=== PATIENT | female | born 1970 | race Caucasian/White ===

== ENCOUNTER 2017-08-08 08:24 | Inpatient (IN) | payer BC ==
--- NOTE | 2017-08-06 11:55 | PREOPHP ---
DATE OF ADMISSION: 08/08/2017 The patient to have surgery with Bulmaro Alegria MD on 08/08/2017. HISTORY OF PRESENT ILLNESS: Consultation requested by Bulmaro Alegria MD for medical evaluation and clearance of a 47-year- old woman about to undergo surgery. Thank you Dr. Alegria, for allowing us to participate in the care of this patient. The patient is a 47-year-old woman with a long-standing history with problems with her back is currently being admitted for correction of the above. In terms of her past medical history, she has really had no other surgeries. She has been quite healthy, has had no medical hospitalizations other than for and had no surgeries and no broken bones. Was taking gabapentin, but is no longer taking that. Takes no other chronic medications and she has no allergies to any medications. SOCIAL HISTORY: Patient is single. Has 2 children and 1 grandchild. She is a low-level smoker, has been smoking for 20 years. Alcohol socially. Does not drink coffee and usually has no difficulty sleeping at night and is employed. FAMILY HISTORY: Father in his 30s of an overdose. Mother 65 in good health. Two siblings are relatively healthy; however, her brother has hypertension and diabetes. There is a family history of diabetes and heart disease, cancer as well as hypertension and stroke. No thyroid issues. REVIEW OF SYSTEMS: HEENT: Periodic headaches. Cardiorespiratory denies any chest pain, shortness of breath. GASTROINTESTINAL: No melena or hematemesis. GENITOURINARY: No urgency frequency. 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 MUSCULOSKELETAL: Positive for low back pain. NEUROPSYCHIATRIC: Unremarkable general health as above. PHYSICAL EXAMINATION: VITAL SIGNS: Patient's blood pressure was 115/60, pulse was 79 and regular, respirations were 18, temperature 98, height 5, feet 1 inch, weight 200 pounds. GENERAL APPEARANCE: Patient was noted to be a well-developed, well-nourished female, alert and cooperative, in no apparent acute distress. Oriented to time, place, and person. HEENT: Head was atraumatic. The eyes pupils were equal, reactive to light and accommodation. Fundi were benign. Tympanic membranes were unremarkable. Nose was negative. Mouth was unremarkable. Fair oral hygiene was present. NECK: Was supple without any rigidity. Trachea was midline. Thyroid was palpable, minimally enlarged. No obvious nodularity being noted. Neck veins were flat. Carotid pulses were equal. No bruits were heard. BACK EXAM: Reveals some lower back tenderness, otherwise unremarkable. CHEST: Was symmetrical. Breast and axillary exam did not reveal any masses. LUNGS: Clear to percussion and auscultation. HEART: PMI is 5th intercostal space at the midclavicular line. Irregular sinus rhythm was noted. No significant murmurs, rubs, or gallops being elicited. ABDOMEN: Soft. Good bowel sounds were noted. No significant organomegaly masses or tenderness. GENITALIA: Per PCP. RECTAL EXAM: Per PCP. EXTREMITIES: Did not reveal any clubbing, edema, or cyanosis. Peripheral pulses were physiologic. SKIN: Was moist and warm without any eruptions. No gross lymphadenopathy was noted. NEUROLOGIC EXAM: Was grossly intact. IMPRESSION: 1. Lumbar disc disease. 2. Metabolic syndrome. 3. Stable health. DISCUSSION: Review of laboratory and other data revealed the following, the patient's chemistry panel including electrolytes, glucose, BUN, creatinine, liver function tests, test CBC, sed rate, UA, PT, PTT were normal. The patient's chest x- ray was within normal limits as was her EKG, which revealed some nonspecific changes but no acute changes being noted. Dr. Alegria, I see no contraindications of the patient undergoing current proposed surgery under the desired form of anesthesia. I will be more than happy to follow her up with you during her stay at [facility]. Thank you again Dr. Alegria for allowing us participate in care of this patient. Dictated By: Edi Kimbrough MD /ember/karine /Document#: [id number] ANNE MARIE
[2017-08-08] VITALS (27 sets, daily range): BP systolic 79–137; BP diastolic 48–88; PULSE 64–78; RESP 18–20; Ht 154.9 cm; Wt 91.0 kg
[~2017-08-08] VITALS: Ht 154.9 cm; Wt 91.0 kg
[~2017-08-08 08:24] MED LIST: ACETAMINOPHEN 1000MG/100ML IV 100 ML ONE; CEFAZOLIN 1 GM INJ ONE; FENTAnyl 50 MCG/ML VIAL ONE; MIDAZOLAM 1 MG/ML 2 ML INJ ONE; PROPOFOL 100 ML ONE; ROCURONIUM 50 MG INJ ONE
[2017-08-08] MEDS ORDERED: D5W-0.45 NACL + KCL 20 MEQ 1,000 ML IV SCH (08:52)
--- NOTE | 2017-08-08 08:52 | HPN ---
Date/Time of Note Date/Time of Note DATE: 08/08/17 TIME: 08:52 Interval H&P Admission Note Pt. seen H&P reviewed: No system changes CHRISTIAN BRENNAN PA-C Aug 08, 2017 08:52
[2017-08-08] MEDS ORDERED: OXYM15SP34 NASAL (08:55)
[2017-08-08] MEDS ORDERED: CYCL-319 PO (08:55)
[2017-08-08] MEDS ORDERED: AL HYDROX/MG HYDROX/SIMETH 30 ML CUP PO PRN ×2 (09:00→12:00)
[2017-08-08] MEDS ORDERED: CYCLOBENZAPRINE 10 MG TAB PO PRN ×2 (09:00→12:00)
[2017-08-08] MEDS ORDERED: DIPHENHYDRAMINE 50 MG INJ IV PRN ×3 (09:00→12:00)
[2017-08-08] MEDS ORDERED: CEPASTAT LOZENGE MT PRN ×2 (09:00→12:00)
[2017-08-08] MEDS ORDERED: HYDROCODONE/APAP (10/325) TAB PO PRN (09:00)
[2017-08-08] MEDS ORDERED: BISACODYL 10 MG SUPP PR PRN ×2 (09:00→12:00)
[2017-08-08] MEDS ORDERED: ZOLPIDEM 5 MG TAB PO PRN ×2 (09:00→12:00)
[2017-08-08] MEDS ORDERED: DOCUSATE SODIUM 100 MG CAP PO SCH (09:00)
[2017-08-08] MEDS ORDERED: NALOXONE (0.4 MG/ML) INJ IV PRN ×2 (09:00→12:00)
[2017-08-08] MEDS ORDERED: ONDANSETRON 4 MG INJ IV PRN ×3 (09:00→12:00)
[2017-08-08] MEDS ORDERED: HYDROmorphONE 1 MG/ML SYG IV PRN ×2 (09:00→12:00)
[2017-08-08] MEDS ORDERED: ACETAMINOPHEN 325 MG TAB PO PRN ×2 (09:00→12:00)
[2017-08-08] MEDS ORDERED: HYDROCODONE/APAP (5/325) TAB PO PRN (09:00)
[2017-08-08] MEDS ORDERED: CEFAZOLIN 1 GM/50 ML (PMX) 50 ML IVPB SCH ×3 (09:00→22:00)
[2017-08-08] MEDS ORDERED: GELATIN SIZE 100 SPONGE ONE (09:25)
[2017-08-08] MEDS ORDERED: SURGIFOAM POWDER 1 GM KIT ONE (09:25)
[2017-08-08] MEDS ORDERED: POLYMYXIN/BACITRACIN 1L IRRIG ONE (09:25)
[2017-08-08] MEDS ORDERED: BUPIVACAINE 0.5%/EPI (SDV) 10 ML INJ ONE (09:25)
[2017-08-08] MEDS ORDERED: THROMBIN 5000 UNIT VIAL ONE (09:25)
[2017-08-08] MEDS ORDERED: SODIUM CL BACTERIOSTATIC 30 ML INJ ONE (09:25)
[2017-08-08] MEDS ORDERED: BUPIVACAINE 0.25% (MPF) 30 ML INJ ONE (09:25)
[2017-08-08] MEDS ORDERED: DEXAMETHASONE 4 MG/ML 1 ML INJ ONE (10:50)
[2017-08-08] MEDS ORDERED: METOCLOPRAMIDE 10 MG INJ ONE (10:50)
[2017-08-08] MEDS ORDERED: ONDANSETRON 4 MG INJ ONE (10:50)
[2017-08-08] MEDS ORDERED: CA CHLORIDE 10% 10 ML SYRINGE ONE (10:51)
[2017-08-08] MEDS ORDERED: BUPIVACAINE 0.25% (MPF) 10 ML 10 ML VIAL ONE (11:00)
[2017-08-08] MEDS ORDERED: FENTAnyl 50 MCG/ML VIAL ONE ×2 (11:01→12:14)
[2017-08-08] MEDS ORDERED: HYDROmorphONE (0.2 MG/ML) 10ML SYG IV PRN ×3 (11:30)
[2017-08-08] MEDS ORDERED: MEPERIDINE 25 MG INJ IV PRN (11:30)
[2017-08-08] MEDS ORDERED: hydrALAzine 20 MG INJ IV PRN (11:30)
[2017-08-08] MEDS ORDERED: LABETALOL HCL 20MG INJ IV PRN (11:30)
[2017-08-08] MEDS ORDERED: METOCLOPRAMIDE 10 MG INJ IV PRN (11:30)
[2017-08-08] MEDS ORDERED: FENTAnyl 50 MCG/ML VIAL IV PRN ×3 (11:30)
[2017-08-08] MEDS ORDERED: EPHEDrine SULFATE 50 MG/5 ML SYG IV PRN (11:30)
[2017-08-08] MEDS ORDERED: ROCURONIUM 50 MG INJ ONE (11:40)
[2017-08-08] MEDS ORDERED: PROPOFOL 20 ML ONE (11:40)
[2017-08-08] MEDS ORDERED: SUGAMMADEX SODIUM 200 MG/2 ML VIAL IV ONE (11:40)
[2017-08-08] MEDS ORDERED: HYDROmorphONE 0.2 MG/ML PCA IV SCH (12:00)
[2017-08-08] MEDS: DOCUSATE SODIUM 100 MG CAP PO SCH ×2 (12:00→20:36)
--- NOTE | 2017-08-08 12:49 | OPPN ---
Date/Time of Note Date/Time of Note DATE: 08/08/17 TIME: 12:47 Operative Report Preoperative Diagnosis left L3-4, L4-5 stenosis Postoperative Diagnosis left L3-4, L4-5 stenosis Operation/Procedure Performed left L3-4, L4-5 decompression left L4-5 microdiscectomy Provider: MAGGIE EUBANKS MD case management assistant: CHRISTIAN BRENNAN PA-C Anesthesia Type: general Estimated blood loss: 100 - 150 ml's Transfusion Required: no Specimens L4-5 disc Grafts/Implants: none Complications: no CHRISTIAN BRENNAN PA-C Aug 08, 2017 12:49
[2017-08-08] MEDS: HYDROmorphONE 0.2 MG/ML PCA IV SCH (13:31)
--- NOTE | 2017-08-08 14:48 | RADRPT ---
PROCEDURE: Intraoperative fluoroscopy. CLINICAL INDICATION: Intraoperative fluoroscopy. COMPARISON: None relevant listed. TECHNIQUE: Intraoperative fluoroscopy of the lumbar spine was performed. Fluoroscopy time: 8.9 seconds # Series / Images: 4 FINDINGS: Intraoperative fluoroscopy was provided for surgical planning and support purposes. Moderate L5-S1 d isc height loss. IMPRESSION: 1. Intraoperative fluoroscopy was provided for surgical planning and support purposes. 2. L5-S1 spondylosis. RPTAT: [facility] Physician Lulú Date Time Electronically viewed and signed by Physician Lulú on 08/08/2017 14:48 LG/
[2017-08-08] MEDS: D5W-0.45 NACL + KCL 20 MEQ 1,000 ML IV SCH ×2 (15:56→23:40)
--- NOTE | 2017-08-08 16:39 | OPR ---
DATE OF OPERATION: 08/08/2017 PREOPERATIVE DIAGNOSES: 1. Left L3-4 and L4-5 stenosis. 2. Left L4-5 disc herniation. 3. Lumbosacral radiculopathy. POSTOPERATIVE DIAGNOSES: 1. Left L3-4 and L4-5 stenosis. 2. Left L4-5 disc herniation. 3. Lumbosacral radiculopathy. PROCEDURE: 1. Decompression of L3 and L4 nerve roots. 2. Left L4-5 hemilaminectomy with decompression of L4 and L5 nerve roots. 3. Left L4-5 microdiskectomy. 4. Use of C-arm flash with interpretation without radiologist present. 5. Intraoperative neuro monitoring (1 hour 45 minutes.) PRIMARY SURGEON: Bulmaro Alegria MD SIGNALING PROJECT ENGINEER: Clarice Veliz PA-C NEED FOR OVEN HEATER: An clinical lab assistant was required for retraction of the neurovascular elements. OPERATIVE FINDINGS AT SURGERY: Neuro monitoring of the case revealed left L5 amplitude 96 percent. Right L5 and bilateral S1 amplitudes 10 percent. At the end of the case, nerve signal returned to normal. The patient had severe stenosis at L4-5 and L3-4 with left-sided herniation at L4-5. ESTIMATED BLOOD LOSS: 100 mL. DRAINS: One. SPECIMENS: L4-5 disc. COMPLICATIONS OF PROCEDURE: None. ANESTHESIOLOGIST: Jamel Leyva MD TYPE OF ANESTHESIA: General. INDICATION FOR PROCEDURE: This is a 47-year-old female with left lumbosacral radiculopathy and a foot drop in the setting of stenosis and a disc herniation. She has failed nonoperative measures. Therefore, I recommended proceeding with the above mentioned surgery. Preoperatively, discussed risks, benefits, alternatives, she understood, wished to proceed. DESCRIPTION OF PROCEDURE IN DETAIL: The patient was identified in the preoperative holding area, given Ancef antibiotics and taken to the operating room, where she was successfully placed under general anesthesia. Neuro monitoring leads were placed. Sequential compressive devices were applied. Neural monitoring was utilized during the procedure for 1 hour 45 minutes to include SSEP, MEP, and EMG. Start time was 11 a.m. closure time was 12:45 p.m. This was performed by [email or web address]. Using a sterile fluoroscope, I identified the incision site and anesthetized the skin with Marcaine and epinephrine. Incision was then made over the L3-4 and L4-5 levels. Incision was taken down to the dorsal fascia, which was incised with Bovie cautery. I then subperiosteal dissected the L3 and L4 lamina. I placed Azucena retractors. I placed a Kerrison under the lamina and took a lateral film and I was able to confirm the correct levels. Microscope was brought in and I proceeded to perform a left hemilaminectomy at L4-5 and a left hemilaminotomy at L3-L4. Ligamentum flavum, which was thickened was removed and I decompressed the canal and lateral recess and the left L3, L4 and left L5 nerve roots. The nerve roots had a higher takeoff than normal. I then turned my attention to the L4-5 level and I retracted neural elements medially. My clinical lab assistant protected them. I then found the annulus and made an annulotomy to perform a diskectomy to further decompress the area and to further alleviate the stenosis. Once this was done, all nerve signals returned to normal. The wound was irrigated. Hemostasis achieved with Surgifoam and bipolar cautery. Due to the bleeding, I placed a subfascial drain. I passed an epidural catheter through which I injected 100 mcg of fentanyl. I then injected PPP with thrombin over the dura for hemostatic purposes. Retractors removed and I closed the fascia with number 1 Vicryl stitch. I then closed subcutaneous tissue with a 2-0 Vicryl stitch. Microscope was brought in. Four Monocryl closure then performed. Dermabond and sterile dressing was then applied. The patient was then awakened from anesthesia and taken to recovery in stable condition. Lap, sponge, and counts correct x2. There were no apparent complications during the procedure. The patient will be admitted to orthopedic brito for routine postoperative care to include pain control, NV checks, antibiotics and physical therapy. Dictated By: Bulmaro Alegria MD /ember/karine /Document#: [id number] ANNE MARIE
[2017-08-08] MEDS: CEFAZOLIN 1 GM/50 ML (PMX) 50 ML IVPB SCH (18:19)
[2017-08-09 00:40] VITALS: BP 100/65; RESP 18
[2017-08-09] MEDS: HYDROmorphONE 0.2 MG/ML PCA IV SCH (01:34)
[2017-08-09] MEDS: CEFAZOLIN 1 GM/50 ML (PMX) 50 ML IVPB SCH (03:17)
[2017-08-09 05:19] LABS: BASOPHILS % 0.1 % (0.0-2.0); HEMATOCRIT 36.4 % (37.0-47.0); HEMOGLOBIN 11.7 g/dl (12.0-16.0); LYMPHOCYTES # 1.2 10^3/ul (0.8-2.9); LYMPHOCYTES % 6.3 % (15.0-51.0); MEAN CORPUSCULAR HEMOGLOBIN 29.1 pg (29.0-33.0); MEAN CORPUSCULAR HGB CONC 32.1 g/dl (32.0-37.0); MEAN CORPUSCULAR VOLUME 90.5 fl (82.0-101.0); MEAN PLATELET VOLUME 10.8 fl (7.4-10.4); MONOCYTE # 1.4 10^3/ul (0.3-0.9); MONOCYTES % 7.8 % (0.0-11.0); NEUTROPHILS % 84.4 % (39.0-77.0); PLATELET COUNT 278 10^3/UL (140-415); RED BLOOD COUNT 4.02 10^6/ul (4.20-5.40); RED CELL DISTRIBUTION WIDTH 12.5 % (11.5-14.5); WHITE BLOOD COUNT 18.5 10^3/ul (4.8-10.8)
[2017-08-09 05:34] LABS: CALCIUM 8.7 mg/dl (8.4-10.2); CREATININE 0.63 mg/dl (0.44-1.00); MAGNESIUM 2.1 mg/dl (1.7-2.5); POTASSIUM 4.4 mmol/L (3.5-5.1)
[2017-08-09] MEDS: D5W-0.45 NACL + KCL 20 MEQ 1,000 ML IV SCH (08:00)
[2017-08-09] MEDS: DOCUSATE SODIUM 100 MG CAP PO SCH (08:14)
[2017-08-09 08:23] VITALS: BP 110/56; RESP 18
--- NOTE | 2017-08-09 08:47 | DS ---
Date/Time of Note Date/Time of Note DATE: 08/09/17 TIME: 08:46 Discharge Summary Admission/Discharge Info Admit Date/Time Aug 08, 2017 at 15:35 Discharge Date/Time 08/09 Discharge Diagnosis s/p lumbar decompression Patient Condition: Good Procedures s/p lumbar decompression Hx of Present Illness leg weakness Hospital Course patient was admitted to the ortho brito after undergoing the above procedure. b post op da 1 she was deemed stable for d/c. Home Meds Reported Medications Oxymetazoline Hcl* (Afrin Niotaze*) 0.05% - 15 Ml Niotaze, 2 SPRAYS NASAL BID, #1 EA to each nostril 08/08/17 Cyclobenzaprine Hcl* (Cyclobenzaprine Hcl*) 10 Mg Tablet, 10 MG PO BID Y for MUSCLE SPASMS, #60 TAB 08/08/17 Primary Care Provider Not On Staff Doctor Pending Labs Laboratory Tests Test 08/09/17 04:44 08/09/17 05:39 White Blood Count 18.510^3/ul (4.8-10.8) Red Blood Count 4.0210^6/ul (4.20-5.40) Hemoglobin 11.7g/dl (12.0-16.0) Hematocrit 36.4% (37.0-47.0) Mean Corpuscular Volume 90.5fl (82.0-101.0) Mean Corpuscular Hemoglobin 29.1pg (29.0-33.0) Mean Corpuscular Hemoglobin Concent 32.1g/dl (32.0-37.0) Red Cell Distribution Width 12.5% (11.5-14.5) Platelet Count 52890^3/UL (140-415) Mean Platelet Volume 10.8fl (7.4-10.4) Neutrophils % 84.4% (39.0-77.0) Lymphocytes % 6.3% (15.0-51.0) Monocytes % 7.8% (0.0-11.0) Eosinophils % 0.0% (0.0-7.0) Basophils % 0.1% (0.0-2.0) Nucleated Red Blood Cells % 0.0/100WBC (0.0-0.0) Neutrophils # (Manual) 15.710^3/ul (1.7-7.5) Lymphocytes # 1.210^3/ul (0.8-2.9) Monocytes # 1.410^3/ul (0.3-0.9) Eosinophils # 0.010^3/ul (0.0-0.5) Basophils # 0.010^3/ul (0.0-0.1) Nucleated Red Blood Cells # 0.010^3/ul (0.0-0.0) Sodium Level 136mmol/L (135-144) Potassium Level 4.4mmol/L (3.5-5.1) Chloride Level 104mmol/L (97-110) Carbon Dioxide Level 26mmol/L (21-31) Anion Gap 10 (8-16) Blood Urea Nitrogen 8mg/dl (7-20) Creatinine 0.63mg/dl (0.44-1.00) Glucose Level 141mg/dl (70-220) Calcium Level 8.7mg/dl (8.4-10.2) Magnesium Level 2.1mg/dl (1.7-2.5) Lab Scanned Report [id number] MAGGIE EUBANKS MD Aug 09, 2017 08:47
[2017-08-09] MEDS ORDERED: HYDROCODONE/APAP (5/325) TAB PO SCH (09:30)
[2017-08-09] MEDS ORDERED: HYDROCODONE/APAP (10/325) TAB PO PRN (10:00)
[2017-08-09] MEDS ORDERED: HYDROCODONE/APAP (5/325) TAB PO PRN (10:00)
[2017-08-09] MEDS ORDERED: CEFAZOLIN 1 GM/50 ML (PMX) 50 ML IVPB SCH (11:00)
[2017-08-09 13:50] VITALS: BP 123/81; RESP 18
== END 2017-08-09 13:58 | disposition home or self-care (01) | DRG 520 ==
LOC: REC 08:24 → SDS 08:24 → UNDOADMIN 08:24 → MS1 10:00 → SDS 10:05 → MS1 14:05 → SDS 20:24
PROVIDERS: ADMIT Specialist; ATTEND Specialist
PROC: 01NB0ZZ Release Lumbar Nerve, Open Approach (ICD-10-PCS; 2017-08-08)
PROC: 4A11X4G Monitoring of Peripheral Nervous Electrical Activity, Intraoperative, External Approach (ICD-10-PCS; 2017-08-08)
PROC: 0ST20ZZ Resection of Lumbar Vertebral Disc, Open Approach (ICD-10-PCS; principal; 2017-08-08 09:30)
DX: M51.16 Intervertebral disc disorders with radiculopathy, lumbar region (principal); E88.81 Metabolic syndrome and other insulin resistance; M48.06 Spinal stenosis, lumbar region; M21.372 Foot drop, left foot; F17.200 Nicotine dependence, unspecified, uncomplicated
CPT/HCPCS: 72100; 80048; 83735; 85025; 86999; 97116; 97162; 97530; J0131; J0690; J1100; J1170; J2250; J2405; J2765; J3010; J3480